=== PATIENT | male | born 1980 | race Caucasian/White ===

== ENCOUNTER 2019-09-23 18:39 | Emergency (ER) | payer BC, OTHER ==
[~2019-09-23] VITALS: Ht 180 cm; Wt 130.0 kg
--- NOTE | 2019-09-23 19:02 | ED Back Pain ---
General Chief Complaint: Back Problems Stated Complaint: BACK PAIN Nursing Triage Note: PT HAS HAD LOWER BACK PAIN X 2 DAYS ON THE LEFT SIDE. 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 He had lifted a drill press a couple of days ago. Since then he has had increasing back pain. He denies having symptoms like this before. He had tried seeing a chiropractor and was told that he might have a disc problem and to go have imaging done. He has had no loss of bowel or bladder control. He has no numbness or tingling into his legs. Allergies and Home Medications Allergies Coded Allergies: morphine (Verified Allergy, Intermediate, Vomiting, 09/23/19) Pertussis Vaccines (Verified Allergy, Unknown, Vomiting, 09/23/19) Parents told when he was a child it made him vomit Home Medications Lisinopril 30 Mg Tablet, 30 MG PO DAILY, (Reported) Patient Home Medication List Home Medication List Reviewed: Yes Review of Systems Constitutional: no symptoms reported EENTM: no symptoms reported Respiratory: no symptoms reported Cardiovascular: no symptoms reported Gastrointestinal: no symptoms reported Genitourinary: no symptoms reported Musculoskeletal: see HPI, back pain, other (spasm and tightness of muscles to left of lumbar spine) Skin: no symptoms reported Psychiatric/Neurological: Denies Numbness, Denies Paresthesia Past Zwwgbue-Cydzkc-Jzjchs Hx Past Med/Social Hx: Reviewed Nursing Past Med/Soc Hx Patient Social History Alcohol Use: Denies Use Recreational Drug Use: No 2nd Hand Smoke Exposure: No Recent Foreign Travel: No Contact w/Someone Who Travel: No Recent Infectious Disease Expo: No Recent Hopitalizations: No Physical Abuse: No Sexual Abuse: No Mistreated: No Fear: No Seasonal Allergies Seasonal Allergies: No Past Medical History Surgeries: Yes (RT SHOULDER, RT KNEE) Orthopedic Respiratory: No Cardiac: Yes Hypertension Neurological: No Genitourinary: No Gastrointestinal: No Musculoskeletal: No Endocrine: No HEENT: No Cancer: No Psychosocial: No Integumentary: No Blood Disorders: No Physical Exam Vital Signs Vital Signs - First Documented 09/23/19 18:52 Temp 36.8 Pulse 71 Resp 18 B/P (MAP) 187/116 (139) Pulse Ox 98 O2 Delivery Room Air Capillary Refill : Less Than 3 Seconds Height, Weight, BMI Height: '" Weight: lbs. oz. kg; 40.00 BMI Method: General Appearance: WD/WN, Mild Distress HEENT: PERRL/EOMI, Normal ENT Inspection, Pharynx Normal Neck: Full Range of Motion, Normal Inspection, Non Tender, Supple Cardiovascular: Regular Rate, Rhythm Respiratory: Chest Non Tender, Lungs Clear, Normal Breath Sounds Back: No CVA Tenderness, Muscle Spasm (left paraspinal muscles of lower lumbar area), Vertebral Tenderness (lumbar spine tenderness without step off), Other (SLR positive on Left at 75 degrees improved with flexion of knee, SLR positive on right at 80 degrees improved with flexion of knee) Extremity: Normal Capillary Refill, Normal Inspection, Normal Range of Motion, Non Tender, No Calf Tenderness, No Pedal Edema Neurologic/Psychiatric: Alert, Oriented x3, No Motor/Sensory Deficits, Normal Mood/Affect, 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 CT scan of Lumbar spine to look for compression fracture or narrowing around nerves. Advised pt and spouse that would need MRI to really get a good look at disc and spine. Progress Note #2: Time: 19:49 Progress Note No acute process on the CT of the lumbar spine. Will review results with the patient and family. 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 Can prescribe ibuprofen and recommend topical anesthetic patches. Counseled to check back with primary and may need physical therapy or MRI if having worsening symptoms. Diagnostic Imaging Diagonstic Imaging: CT Plain Films/CT/US/NM/MRI: other (Lumbar spine) Comments NAME: MADAY YOO [facility] REC#: [id number] PT STATUS: REG ER : 1980 PHYSICIAN: NARAYAN DIAS MD ADMIT DATE: 09/23/19/ER FS Draft Date of Exam:09/23/19 CT LUMBAR SPINE WO INDICATION: Lifting injury, back pain with right leg radiculopathy. TECHNIQUE: Multiple contiguous axial images were obtained through the lumbar spine without the use of intravenous contrast. Sagittal and coronal reformations were then performed. Auto Exposure Controls were utilized during the CT exam to meet ALARA standards for radiation dose reduction. There is no prior study for comparison. FINDINGS: The lumbar vertebrae are normal in height and alignment. There is no fracture or subluxation. There is no significant disc space narrowing. The facets are in good alignment. There is no spondylolysis or spondylolisthesis. There is no soft tissue hematoma. There is no overt canal narrowing or overt disc herniation. IMPRESSION: Essentially negative CT of the lumbar spine. If symptoms persist, consider MRI for more sensitive evaluation of the discs. Dictated on workstation # [id number] Dict: 09/23/191943 Trans: 09/23/191947 [id number] Interpreted by: MALA CANTOR MD Electronically signed by: Departure Impression Primary Impression: Acute lumbar back pain Qualified Codes: M54.5 - Low back pain Additional Impressions: Acute lumbar myofascial strain Qualified Codes: S39.012A - Strain of muscle, fascia and tendon of lower back, initial encounter Lumbar paraspinal muscle spasm Disposition: HOME, SELF-CARE Condition: Stable Departure-Patient Inst. Decision time for Depature: 20:08 Referrals: MELBA VAZQUEZ MD (PCP/Family) Primary Care Physician Patient Instructions: Lumbar Muscle Strain (DC), Low Back Pain (DC), Muscle Spasms (DC) Add. Discharge Instructions: Check back with Dr. Vazquez and you may need physical therapy or an MRI if having persistent problems/pain. Alternate ice and heat to your back. Take NSAIDS to help with pain and inflammation. Use numbing patches to help with pain and spasm. Consider muscle relaxer at bedtime to help you rest and relax the muscle spasms. All discharge instructions reviewed with patient and/or family. Voiced understanding. Scripts Orphenadrine Citrate (Orphenadrine Citrate) 100 Mg Tablet.er 100 MG PO BID PRN for MUSCLE SPASMS for 10 Days, #20 TAB 0 Refills Prov: NARAYAN DIAS MD 09/23/19 NARAYAN DIAS MD Sep 23, 2019 19:02
[2019-09-23] MEDS ORDERED: KETOROLAC 60 MG/2 ML VIAL IM STA (19:22)
[2019-09-23] MEDS ORDERED: ORPHENADRINE 60 MG/2 ML (NORFLEX) AMP IM STA (19:22)
[2019-09-23] MEDS ORDERED: LISI30TA5 PO (19:48)
--- NOTE | 2019-09-23 19:48 | Diagnostic Imaging Report ---
INDICATION: Lifting injury, back pain with right leg radiculopathy. TECHNIQUE: Multiple contiguous axial images were obtained through the lumbar spine without the use of intravenous contrast. Sagittal and coronal reformations were then performed. Auto Exposure Controls were utilized during the CT exam to meet ALARA standards for radiation dose reduction. There is no prior study for comparison. FINDINGS: The lumbar vertebrae are normal in height and alignment. There is no fracture or subluxation. There is no significant disc space narrowing. The facets are in good alignment. There is no spondylolysis or spondylolisthesis. There is no soft tissue hematoma. There is no overt canal narrowing or overt disc herniation. IMPRESSION: Essentially negative CT of the lumbar spine. If symptoms persist, consider MRI for more sensitive evaluation of the discs. Dictated by: Dictated on workstation # [id number]
[2019-09-23] MEDS ORDERED: ORPH100T PO (20:09)
[2019-09-23 20:12] VITALS: BP 187/116
== END 2019-09-23 20:12 | disposition home or self-care (01) ==
LOC: ER FS 18:41
DX: S39.012A Strain of muscle, fascia and tendon of lower back, initial encounter (principal); M62.830 Muscle spasm of back; I10 Essential (primary) hypertension; Z88.5 Allergy status to narcotic agent; Z88.7 Allergy status to serum and vaccine; X50.0XXA Overexertion from strenuous movement or load, initial encounter
CPT/HCPCS: 72131